=== PATIENT | female | born 1960 | race Caucasian/White ===

== ENCOUNTER 2020-07-02 11:23 | Emergency (ER) | payer SELFPAY ==
[~2020-07-02] VITALS: Ht 157.5 cm; Wt 65.8 kg
[2020-07-02 11:35] VITALS: Ht 157.5 cm; Wt 65.8 kg
[2020-07-02 14:21] VITALS: BP 197/76
== END 2020-07-02 13:20 | disposition home or self-care (01) ==
LOC: ED 11:23
DX: L03.012 Cellulitis of left finger (principal); Z98.890 Other specified postprocedural states